=== PATIENT | female | born 1955 | race Caucasian/White ===

== ENCOUNTER 2018-06-22 18:36 | Outpatient (REF) | payer MEDICARE, MEDICAID, SELFPAY ==
[2018-06-22 19:22] LABS: HCT 38.2 % (36.0-46.0); HGB 12.9 g/dL (12.0-15.5); Mean Corp. HGB Concentration 33.8 g/dL (32.0-36.0); Mean Corpuscular Hemoglobin 28.7 pg (27.0-33.0); Mean Corpuscular Volume 85.1 fL (80-95); Mean Platelet Volume 9.1 fL (8.0-11.0); Platelet Count 328 x1000/uL (130-400); RBC 4.49 m/cumm (4.00-5.20); RBC Distribution Width 13.7 % (11.7-14.6); White Blood Cell Count 5.75 k/cumm (4.4-10.8)
[2018-06-22 19:34] LABS: ALT 19 U/L (12-78); AST 11 U/L (15-37); Alkaline Phosphatase 90 U/L (46-116); Anion Gap 9.7 mmol/L (3-11); BUN 16 mg/dL (7-18); Bilirubin, Total 0.5 mg/dL (0.2-1.0); CO2 26.3 mmol/L (21.0-32.0); CREATININE 0.73 mg/dL (0.55-1.02); Calcium 9.5 mg/dL (8.5-10.1); Chloride 105 mmol/L (98-107); Cholesterol 253 mg/dL (50-200); Glucose 84 mg/dL (70-100); HDL Cholesterol 68 mg/dL (40-60); LDL CHOLESTEROL 156 mg/dL (<100); Magnesium 1.8 mg/dL (1.8-2.4); Potassium 4.2 mmol/L (3.5-5.1); Sodium 141 mmol/L (136-145); Total Protein 7.4 g/dL (6.4-8.2); Triglyceride 128 mg/dL (30-150)
[2018-06-22 23:10] LABS: FREE T4 1.06 ng/dL (0.76-1.46)
== END 2018-06-22 18:56 ==
LOC: LBN 18:36
PROVIDERS: PCP Nurse Practitioner; Visit Provider Nurse Practitioner Adult Health
DX: M17.12 Unilateral primary osteoarthritis, left knee (principal); E06.3 Autoimmune thyroiditis; G89.4 Chronic pain syndrome; M62.838 Other muscle spasm; R60.9 Edema, unspecified; E03.9 Hypothyroidism, unspecified; E78.5 Hyperlipidemia, unspecified
CPT/HCPCS: 80053; 80061; 83721; 85027; 83735; 84439; 84443

== ENCOUNTER 2018-11-10 10:00 | Outpatient (CLI) | payer MEDICARE, MEDICAID, SELFPAY ==
--- NOTE | 2018-11-10 14:49 | DI.RAD_ITS ---
SYMPTOMS/DIAGNOSIS: RIGHT HIP AND KNEE PAIN, M25.551, M25.561 RIGHT KNEE: Medial tibiofemoral joint space narrowing is demonstrated. There is some moderate periarticular hypertrophic spurring and severe DJD involving the patellofemoral joint is noted. SUMMARY: Findings consistent with severe DJD. RIGHT HIP: Severe DJD involving the right hip includes joint space narrowing, sclerosis and subchondral cyst formation. There has been interval progression of the degenerative disease when compared with a prior examination of 08/13/2017.
== END 2018-11-10 10:20 ==
PROVIDERS: PCP Nurse Practitioner; Visit Provider Nurse Practitioner
DX: M25.561 Pain in right knee (principal); M25.551 Pain in right hip; M17.11 Unilateral primary osteoarthritis, right knee; M16.11 Unilateral primary osteoarthritis, right hip
CPT/HCPCS: 73562; 73502

== ENCOUNTER 2019-04-14 13:02 | Outpatient (CLI) | payer MEDICARE, MEDICAID, SELFPAY ==
[2019-04-14 13:27] LABS: Bilirubin Negative (Negative); Blood Negative (Negative); Clarity Clear (Clear); Glucose Negative (Negative); Ketones Negative (Negative); Leukocyte Esterase Negative (Negative); Nitrite Negative (Negative); Specific Gravity <= 1.005 (1.005-1.025); Urobilinogen 0.2 EU/dL (Up TO 0.2); pH 5.5 (5-8)
== END 2019-04-14 13:22 ==
PROVIDERS: PCP Nurse Practitioner; Visit Provider Nurse Practitioner
DX: R31.9 Hematuria, unspecified (principal)
CPT/HCPCS: 81003

== ENCOUNTER 2019-05-24 13:42 | Outpatient (REF) | payer MEDICARE, MEDICAID, SELFPAY ==
[2019-05-28 09:39] LABS: Amphetamine Negative ng/mL (Cutoff: 25); Amphetamines Interpretation Negative.; MDA (Ecstasy Metabolite) Negative ng/mL (Cutoff: 25); MDMA (Ecstasy) Negative ng/mL (Cutoff: 25); Methamphetamine Negative ng/mL (Cutoff: 25); Phentermine Negative ng/mL (Cutoff: 25); Pseudoephedrine/Ephedrine Negative ng/mL (Cutoff: 25)
== END 2019-05-24 14:02 ==
LOC: LBN 13:42
PROVIDERS: PCP Nurse Practitioner; Visit Provider Nurse Practitioner
DX: G89.4 Chronic pain syndrome (principal); Z79.899 Other long term (current) drug therapy; R82.5 Elevated urine levels of drugs, medicaments and biological substances
CPT/HCPCS: 80324

== ENCOUNTER 2019-11-09 15:12 | Outpatient (REF) | payer MEDICARE, MEDICAID, SELFPAY ==
[2019-11-15 01:11] LABS: Amphetamine Negative ng/mL (Cutoff: 25); Amphetamines Interpretation Negative.; MDA (Ecstasy Metabolite) Negative ng/mL (Cutoff: 25); MDMA (Ecstasy) Negative ng/mL (Cutoff: 25); Methamphetamine Negative ng/mL (Cutoff: 25); Phentermine Negative ng/mL (Cutoff: 25); Pseudoephedrine/Ephedrine Negative ng/mL (Cutoff: 25)
== END 2019-11-09 15:32 ==
LOC: LBN 15:12
PROVIDERS: PCP Nurse Practitioner; Visit Provider Nurse Practitioner
DX: R82.5 Elevated urine levels of drugs, medicaments and biological substances (principal); G89.4 Chronic pain syndrome
CPT/HCPCS: 80324

== ENCOUNTER 2019-11-23 00:59 | Outpatient (CLI) | payer MEDICARE, MEDICAID, SELFPAY ==
[2019-11-23 16:37] LABS: ALT 11 U/L (14-59); AST 13 U/L (15-37); Albumin 3.8 g/dL (3.4-5.0); Alkaline Phosphatase 77 U/L (46-116); Anion Gap 11.2 mmol/L (3-11); BUN 10 mg/dL (7-18); Bilirubin, Total 0.5 mg/dL (0.2-1.0); CO2 26.8 mmol/L (21.0-32.0); CREATININE 0.76 mg/dL (0.55-1.02); Calcium 9.1 mg/dL (8.5-10.1); Calculated LDL 128 mg/dL (<100); Chloride 105 mmol/L (98-107); Cholesterol 214 mg/dL (<200); Glucose 78 mg/dL (74-106); HDL Cholesterol 62 mg/dL (40-60); Potassium 3.6 mmol/L (3.5-5.1); Sodium 143 mmol/L (136-145); TSH (W/Ref FT4) 0.03 uIU/mL (0.36-3.74); Triglyceride 122 mg/dL (<150)
[2019-11-23 17:14] LABS: FREE T4 1.15 ng/dL (0.76-1.46)
== END 2019-11-23 01:19 ==
PROVIDERS: PCP Nurse Practitioner; Visit Provider Nurse Practitioner
DX: I10 Essential (primary) hypertension (principal); E78.5 Hyperlipidemia, unspecified; E03.9 Hypothyroidism, unspecified
CPT/HCPCS: 80053; 80061; 84439; 84443

== ENCOUNTER 2021-01-22 03:10 | Outpatient (CLI) | payer MEDICARE, MEDICAID, SELFPAY ==
[2021-01-22 16:09] LABS: HCT 36.4 % (36.0-46.0); HGB 11.8 g/dL (11.2-15.7); MCHC 32.4 % (32.0-36.0); MCV 86.5 fL (80-95); MPV 8.7 fL (8.0-11.0); Platelet Count 358 10^3/uL (130-400); RBC 4.21 10^6/uL (3.93-5.22); RDW 13.3 % (11.7-14.6); RDW-SD 42.5 fL
[2021-01-22 17:17] LABS: ALT 30 U/L (14-59); AST 25 U/L (15-37); Albumin 4.1 g/dL (3.4-5.0); Alkaline Phosphatase 95 U/L (46-116); Anion Gap 12.8 mmol/L (3-11); BUN 13 mg/dL (7-18); Bilirubin, Total 0.3 mg/dL (0.2-1.0); CO2 26.2 mmol/L (21.0-32.0); CREATININE 0.7 mg/dL (0.55-1.02); Calcium 9.3 mg/dL (8.5-10.1); Calculated LDL 151 mg/dL (<100); Chloride 104 mmol/L (98-107); Cholesterol 251 mg/dL (<200); Glucose 83 mg/dL (74-106); HDL Cholesterol 66 mg/dL (40-60); Potassium 4.1 mmol/L (3.5-5.1); Sodium 143 mmol/L (136-145); TSH (W/Ref FT4) 0.09 uIU/mL (0.36-3.74); Total Protein 7.3 g/dL (6.4-8.2); Triglyceride 172 mg/dL (<150); Vitamin B12 324 pg/mL (193-986)
[2021-01-22 17:45] LABS: FREE T4 1.09 ng/dL (0.76-1.46)
== END 2021-01-22 03:11 | disposition home or self-care (01) ==
LOC: LBO 03:11
PROVIDERS: PCP Nurse Practitioner Adult Health; Visit Provider Nurse Practitioner Adult Health
DX: E03.9 Hypothyroidism, unspecified (principal); E06.3 Autoimmune thyroiditis; E78.5 Hyperlipidemia, unspecified; G89.29 Other chronic pain; M17.12 Unilateral primary osteoarthritis, left knee; M25.512 Pain in left shoulder; Z86.2 Personal history of diseases of the blood and blood-forming organs and certain disorders involving the immune mechanism; Z79.1 Long term (current) use of non-steroidal anti-inflammatories (NSAID)
CPT/HCPCS: 36415; 80053; 80061; 85027; 82607; 84439; 84443

== ENCOUNTER 2021-08-20 01:55 | Outpatient (CLI) | payer MEDICARE, MEDICAID, SELFPAY ==
--- NOTE | 2021-08-20 07:30 | DI.MAMMO_ITS ---
Exam(s) MAMMO SCREENING EXAM: MAMMO SCREENING CLINICAL HISTORY: screening,z12.39. TECHNIQUE: Bilateral full field digital CC and MLO mammographic images were obtained with 3D tomosyn thesis and utilizing computer aided detection (CAD). COMPARISON: Prior mammograms were reviewed. No previous for comparison FINDINGS: There are no spiculated masses nor malignant appearing microcalcification groups. There is no significant architectural distortion nor skin thickening-retraction. IMPRESSION: No radiographic evidence of malignancy. BI-RADS Category 1 - Negative Breast Density - Category B - Scattered areas of fibroglandular density Breast density Category C or D implies that the patient has dense breast tissue. Dense breast tissue can make it harder to find cancer on a mammogram. Dense breast tissue is also associated with an incr eased risk of breast cancer. This information about the result of the mammogram report was provided to the patient to raise their awareness. Use this report when you speak with the patient about their risks for breast cancer, which includes their family history. At that time, you may recommend additional screening tests (Ultrasoun d or MRI) as these tests may add significant information. A negative radiographic report should not delay biopsy if a dominant or clinically suspicious mass is present. Up to ten percent of cancers are not identified on mammography. A negative report may reinforce clinical impression. Adenosis and dense breasts may obscure an underlying neoplasm. False positive reports average 6 to 10%. Patient will receive a letter notifying them of these results.
== END 2021-08-20 02:15 ==
PROVIDERS: PCP Nurse Practitioner Adult Health; Visit Provider Nurse Practitioner Adult Health
DX: Z12.31 Encounter for screening mammogram for malignant neoplasm of breast (principal)
CPT/HCPCS: 77063; 77067

== ENCOUNTER → 2021-09-14 10:44 | Outpatient (CLI) | payer MEDICARE, MEDICAID, SELFPAY | PROVIDERS: PCP Nurse Practitioner Adult Health; Visit Provider Nurse Practitioner Adult Health ==

== ENCOUNTER → 2021-10-08 00:22 | Outpatient (CLI) | payer MEDICARE, MEDICAID, SELFPAY | PROVIDERS: PCP Nurse Practitioner Adult Health; Visit Provider Nurse Practitioner Adult Health ==

== ENCOUNTER 2022-12-27 15:16 | Outpatient (CLI) | payer MEDICARE, MEDICAID, SELFPAY ==
[2022-12-27 14:50] LABS: Hemoglobin A1C 5.5 % (<5.7)
[2022-12-27 15:17] LABS: Anion Gap 10.7 mmol/L (3-11); BUN 14 mg/dL (7-18); CO2 25.3 mmol/L (21.0-32.0); CREATININE 0.9 mg/dL (0.55-1.02); Calcium 9.3 mg/dL (8.5-10.1); Calculated LDL 190 mg/dL (<100); Chloride 104 mmol/L (98-107); Cholesterol 295 mg/dL (<200); Estimated GFR 70.51 (mL/min/1.73m2); Glucose 130 mg/dL (74-106); HDL Cholesterol 59 mg/dL (40-60); Potassium 4.1 mmol/L (3.5-5.1); Sodium 140 mmol/L (136-145); TSH (W/Ref FT4) 12.94 uIU/mL (0.36-3.74); Triglyceride 233 mg/dL (<150); Vitamin B12 > 2000 pg/mL (193-986)
[2022-12-27 15:18] LABS: Vitamin D 25 Total 59.7 ng/mL (30-100)
[2022-12-27 15:34] LABS: FREE T4 0.91 ng/dL (0.76-1.46)
[2022-12-28 19:56] LABS: Lab Add On Test DONE
== END 2022-12-27 15:17 | disposition home or self-care (01) ==
LOC: LBO 15:22
PROVIDERS: Student in an Organized Health Care Education/Training Program; PCP Nurse Practitioner Adult Health; Visit Provider Nurse Practitioner Adult Health
DX: R79.89 Other specified abnormal findings of blood chemistry (principal); R73.01 Impaired fasting glucose; E03.9 Hypothyroidism, unspecified; E06.3 Autoimmune thyroiditis; R26.89 Other abnormalities of gait and mobility; E55.9 Vitamin D deficiency, unspecified; M79.2 Neuralgia and neuritis, unspecified; Z79.1 Long term (current) use of non-steroidal anti-inflammatories (NSAID)
CPT/HCPCS: 36415; 80048; 80061; 82306; 82607; 83036; 84439; 84443; 84481

== ENCOUNTER → 2023-04-25 00:14 | Outpatient (CLI) | payer MEDICARE, MEDICAID, SELFPAY ==
--- NOTE | 2023-04-25 07:30 | DI.RAD_ITS ---
Exam(s) XR SHOULDER LT COMPLETE 2+V EXAM: XR SHOULDER LT COMPLETE 2+V CLINICAL HISTORY: assesss joint bones,lt shoulder pain,m25.512. TECHNIQUE: 2D digital imaging was performed of the left shoulder. Seven images were obtained. AP, Grashey, Y-view and axillary views were obtained. COMPARISON: No exams were available for comparison FINDINGS: BONES: No acute fracture is present. No bony destructive lesion is seen. JOINTS: No dislocation present. There are advanced degenerative changes seen at the glenohumeral join t with loss of the joint space, flattening of the articular surfaces and osteophytes and, including a large osteophyte arising from the inferior aspect of the humeral head. Mild degenerative changes ar e seen at the acromioclavicular joint. SOFT TISSUE: The visualized lungs are clear. IMPRESSION: Advanced degenerative changes seen in the left shoulder. DATA REPOSITORY: RADIATION DOSE DELIVERED:
== END ==
PROVIDERS: PCP Nurse Practitioner Adult Health; Visit Provider Nurse Practitioner Adult Health
DX: M19.012 Primary osteoarthritis, left shoulder (principal)
CPT/HCPCS: 73030